=== PATIENT | male | born 1955 | race Caucasian/White ===

== ENCOUNTER → 2021-03-18 13:17 | Outpatient (CLI) | payer OTHER, SELFPAY ==
--- NOTE | ~2021-03-18 | XR_ITS ---
XR lumbar spine 2-3V DATE: 03/18/2021 13:39 INDICATION: Back pain TECHNIQUE: AP, lateral, coned lateral lumbosacral views COMPARISON: None FINDINGS: Normal alignment of the lumbar spine. No fracture or bone destruction or spondylolisthesis. There is prominent degenerative spurring of the lower thoracic spine. There is degenerative spurring throughout the lumbar and lower cervical spine. The sacroiliac joints are intact. There is abdominal aortic calcification. No evidence of abdominal aortic aneurysm. Surgical clips overlie the right upper and lower abdomen. IMPRESSION: Degenerative changes of the thoracic and lumbar spine Reviewed, dictated and finalized at location [facility]. DITER
== END ==
PROVIDERS: PCP Family Medicine; Visit Provider Family Medicine
DX: M51.34 Other intervertebral disc degeneration, thoracic region (principal); M51.36 Other intervertebral disc degeneration, lumbar region
CPT/HCPCS: 72100

== ENCOUNTER → 2021-09-14 08:37 | Outpatient (CLI) | payer OTHER, SELFPAY ==
--- NOTE | ~2021-09-14 | CT_ITS ---
EXAMINATION: CT lung screening DATE: 09/14/2021 08:57 INDICATION: Personal history of tobacco dependence TECHNIQUE: Computed tomography (CT) of the chest was performed without intravenous contrast. The dose -length product was 430.52 mGy-cm. Automated exposure control and iterative reconstruction technique were employed. COMPARISON: CT dated 12/18/2016 FINDINGS: Heart size normal. No significant pleural or pericardial effusion. There are calcified gran ulomas of the liver and spleen. No thoracic lymphadenopathy. Thyroid gland is unremarkable. There is atherosclerosis of the aorta and coronary arteries. There are a few scattered calcified granulomas of the lung parenchyma. No endobronchial lesions. Bibasilar atelectasis. No noncalcified pulmonary nodu les are identified. Mild thoracic spondylosis. IMPRESSION: 1. Lung-RADS category 1: Negative. Continue annual screening with noncontrast low-dose chest CT in 12 months. Reviewed, dictated and finalized at location [facility]. IMPRESSION: 1. Lung-RADS category 1: Negative. Continue annual screening with noncontrast l ow-dose chest CT in 12 months.
== END ==
PROVIDERS: PCP Family Medicine; Visit Provider Family Medicine
DX: Z12.2 Encounter for screening for malignant neoplasm of respiratory organs (principal); Z87.891 Personal history of nicotine dependence
CPT/HCPCS: 71271

== ENCOUNTER 2023-10-17 09:49 | Outpatient (CLI) | payer MEDICARE, SELFPAY ==
[2023-10-17 13:39] LABS: Creatinine Urine 99.6 mg/dL
[2023-10-17 13:45] LABS: MALB Creatinine Ratio 37.2 mg/g (0-30); Microalbumin Urine Random 37.1 mg/L (0-16.7)
[2023-10-17 14:22] LABS: Free T4 Free Thyroxine 1.27 ng/mL (0.78-2.19); Vitamin D 25 Hydroxy 64.7 ng/mL
[2023-10-17 18:05] LABS: Alanine Aminotransferase 39 U/L (6-50); Alkaline Phosphatase 112 U/L (38-126); Anion Gap 5 mmol/L (4-12); Aspartate Amino Transferase 65 U/L (17-59); Blood Urea Nitrogen 14 mg/dL (9-20); Calcium 9.6 mg/dL (8.4-10.2); Carbon Dioxide 29 mmol/L (22-30); Chloride 104 mmol/L (98-107); Cholesterol 156 mg/dL (0-200); Estimated Glomerular Filt Rate > 60; Glucose 167 mg/dL (65-110); HDL Direct 30 mg/dL; Potassium 5.1 mmol/L (3.4-5.0); Sodium 138 mmol/L (137-145); Triglycerides 163 mg/dL (<150)
[2023-10-17 18:16] LABS: LDL Cholesterol Direct 101 mg/dL
[2023-10-17 18:36] LABS: Prostate Specific Antigen 0.4 ng/mL (< OR = 4.0)
== END 2023-10-17 09:50 | disposition home or self-care (01) ==
PROVIDERS: PCP Family Medicine; Visit Provider Family Medicine
DX: E11.29 Type 2 diabetes mellitus with other diabetic kidney complication (principal); R80.9 Proteinuria, unspecified; E11.65 Type 2 diabetes mellitus with hyperglycemia; E78.2 Mixed hyperlipidemia; I10 Essential (primary) hypertension; Z12.5 Encounter for screening for malignant neoplasm of prostate
CPT/HCPCS: 36415; 80053; 80061; 82043; 82306; 82607; 84153; 84439; 84443; G0103

== ENCOUNTER 2023-11-23 15:27 | Outpatient (CLI) | payer MEDICARE, SELFPAY ==
--- NOTE | ~2023-11-23 | CT_ITS ---
CT Scan of the Chest without Contrast: Clinical Indication: Lung cancer screening, nicotine dependence Technique: Contiguous sections were acquired throughout the chest without intravenous contrast. Dose reduction technique was used on this scan by utilizing automated exposure control and iterative recon struction technique. The dose-length product (DLP) was 404.14 mGy-cm. COMPARISON: 09/14/2021 Findings: There is no evidence of any significant mediastinal, hilar or axillary lymphadenopathy. Calcified med iastinal lymph nodes are present. Coronary artery calcifications are present. There is no evidence of pleural or pericardial effusion. Several small calcified granulomas are present. No overtly suspicious pulmonary nodule. Images through the upper abdomen reveal no abnormalities. Impression: Lung RADS 2: Benign appearance. 12 month follow-up screening CT advised. Reviewed, dictated and finalized at [facility]. Impression: Lung RADS 2: Benign appearance. 12 month follow-up screening CT advised.
== END 2023-11-23 15:28 ==
LOC: MICIMG 15:27
PROVIDERS: PCP Family Medicine; Visit Provider Family Medicine
DX: Z12.2 Encounter for screening for malignant neoplasm of respiratory organs (principal); Z87.891 Personal history of nicotine dependence
CPT/HCPCS: 71271